=== PATIENT | male | born 1955 | race Caucasian/White ===

== ENCOUNTER 2021-05-29 08:19 | Outpatient (CLI) | payer MEDICARE | END 2021-05-29 08:20 | disposition home or self-care (01) | LOC: CSHWCC 08:19 | PROVIDERS: ATTEND Nurse Practitioner Family | DX: L89.159 Pressure ulcer of sacral region, unspecified stage (principal); L89.219 Pressure ulcer of right hip, unspecified stage | CPT/HCPCS: 11042; 97139; G0463; 99203 ==

== ENCOUNTER 2021-05-29 10:39 | Outpatient (CLI) | payer MEDICARE ==
[2021-05-29 21:48] LABS: SARS-CoV-2 PCR by NAA Not Detected (NotDetected)
== END 2021-05-29 10:40 | disposition home or self-care (01) ==
LOC: CSHLAB 10:39
PROVIDERS: ATTEND Urology
DX: Z20.822 Contact with and (suspected) exposure to COVID-19 (principal); R33.9 Retention of urine, unspecified
CPT/HCPCS: U0003; U0005

== ENCOUNTER 2021-06-12 12:49 | Outpatient (CLI) | payer MEDICARE, OTHER | END 2021-06-12 12:50 | disposition home or self-care (01) | LOC: CSHWCC 12:49 | PROVIDERS: ATTEND Nurse Practitioner Family | DX: L89.159 Pressure ulcer of sacral region, unspecified stage (principal); L89.219 Pressure ulcer of right hip, unspecified stage ==